=== PATIENT | female | born 1970 | race Hispanic/Latino ===

== ENCOUNTER 2016-11-23 14:12 | Emergency (ER) | payer OTHER ==
[2016-11-23 14:34] VITALS: BP 136/98; PULSE 78; RESP 18; TEMP 98.1; O2SAT 96; BMI 25.8
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
--- NOTE | 2016-11-23 16:37 | RAD ---
PROCEDURE: Radiographs of the Lumbar Spine. HISTORY: back pain COMPARISON: No prior. FINDINGS: BONES: Normal alignment. No listhesis. No fracture. DISC SPACES: Unremarkable. OTHER FINDINGS: None. IMPRESSION: Unremarkable radiographs of the lumbar spine.
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
== END 2016-11-23 17:53 | disposition home or self-care (01) ==
LOC: ED 14:12
DX: R51 Headache (principal); M54.9 Dorsalgia, unspecified; V49.49XA Driver injured in collision with other motor vehicles in traffic accident, initial encounter; Y92.410 Unspecified street and highway as the place of occurrence of the external cause
CPT/HCPCS: 70450; 72110; 96372; 99284; J1885